=== PATIENT | female | born 1990 | race Caucasian/White ===

== ENCOUNTER 2018-01-28 18:14 | Observation (INO) ==
[2018-01-28] MEDS ORDERED: Ringers Solution, Lactated 1,000 ML ONE (19:01)
[2018-01-28 19:07] LABS: Bilirubin,Urine Negative (Negative); Blood,Urine Negative (Negative); Clarity,Urine Cloudy (Clear); Color,Urine Yellow (Yellow); Glucose,Urine (UA) Normal (Normal); Ketones,Urine 80 mg/dL (Negative); Leukocyte Esterase,Urine Moderate (Negative); Nitrite,Urine Negative (Negative); PH,Urine 6.5 pH Units (5.0-8.0); Protein,Urine Trace mg/dL (Neg-Trace); Urobilinogen,Urine Normal (Normal)
[2018-01-28 19:09] LABS: Bacteria,Urine Moderate per hpf (None-Few); Squamous Epithelial Cell,Urine Many per lpf (None-Few); WBC,Urine 50-100 per hpf (0-3)
[2018-01-28 19:11] LABS: Amphetamine Screen,Urine Negative ng/mL (Cutoff=1000); Barbiturate Screen,Urine Negative ng/mL (Cutoff=200); Benzodiazepines Screen,Urine Negative ng/mL (Cutoff=200); Cannabinoid Screen,Urine Negative ng/mL (Cutoff = 50); Cocaine Screen,Urine Negative ng/mL (Cutoff= 300); Opiate Screen,Urine Negative ng/mL (Cutoff=300); Phencyclidine Screen,Urine Negative ng/mL (Cutoff=25)
--- NOTE | 2018-01-28 19:15 | OB/GYN History & Physical ---
Date of Encounter: 01/28/18 Time of Encounter: 19:12 Assessment and Plan (1) 25 weeks gestation of Current visit: Yes Status: Acute (2) CVA tenderness Current visit: Yes Status: Acute (3) Urinary urgency Current visit: Yes Status: Acute (4) Pyelonephritis affecting in second trimester Current visit: Yes Status: Acute Admit to inpatient Administer rocephin 1g every 24 hours IV NST daily Pain medicine PRN Regular diet Possible discharge tomorrow History of Present Illness Chief complaint: flank pain HPI: Ms. Cerda is a 27 year old who presents with complaints of bilateral flank pain, suprapubic tenderness, nausea, urinary frequency, urinary urgency, and dysuria since this afternoon. Endorses good FM, and denies LOF, vaginal bleeding, ctx. Past Med Surg Social Fam HX - Past Medical History Medical history: no medical history - Social History Smoking Status: Never smoker Smokeless Tobacco Status: No Alcohol use: none Drug use: none - Family History Mother Living Status: Still Living Hx Family Cardiac Disorders: No Hx Family Respiratory Disorders: No Hx Family Cancer: No Hx Family GI Disorders: No Hx Family Genitourinary Disorders: No Hx Family Endocrine Disorder: No Hx Family Musculoskeletal Disorders: No Hx Family Neuromuscular Disorders: No Hx Family Neurologic Disorders: No Hx Family HEENT Disorders: No Hx Family Autoimmune Disorders: No Hx Family Reproductive Disorders: No Hx Family Psychosocial Disorders: No Hx Family Medical Disorders: No Obstetrical History - Pregnancies : 2 Para: 1 Term: 1 : 0 Ab's: 0 Livin Medications and Allergies Vit/Iron Fumarate/FA [ Tablet] 1 tab PO DAILY 01/28/18 [History ] 3 Allergy/AdvReac Type Severity Reaction Status Date / Time No Known Allergies Allergy Verified 01/28/18 18:31 Review of System OB - Genitourinary Genitourinary: change in urinary stream, difficulty urinating, difficulty voiding, post void dribbling, urinary frequency, urinary urgency Exam - Constitutional Constitutional: well developed, well nourished, average body habitus, moderate distress - HEENT HEENT: Normocephaly, Mucus Membranes Moist - Neck Neck exam: full ROM - Lungs Respiratory exam: CTAB - Cardiovascular Cardiovascular exam: RRR, +S1, +S2 - Breasts Breast: bilateral: normal - Abdomen Abdomen: Present: bowel sounds normal, gravid - Extremities Extremities exam: radial pulses palpable and symmetrical - Uterus Uterus exam: Present: normal size, normal contour - Comments Comments: Bilateral CVA tenderness Suprapubic tenderness Results Result Diagrams: 01/28/18 19:14 01/28/18 19:14 All other labs normal. - VTE Reasons for not Prescribing Prophylaxis: Treatment not Indicated - Low risk for VTE
[2018-01-28] MEDS ORDERED: Ringers Solution, Lactated 500 ML IVC ONE (19:21)
[2018-01-28] MEDS ORDERED: Ringers Solution, Lactated 1,000 ML IVC SCH (19:30)
[2018-01-28 19:33] LABS: Hyaline Casts,Urine Few per lpf (None-Few)
[2018-01-28] MEDS ORDERED: Ondansetron 4 MG/2 ML VIAL IVP ONE (19:35)
[2018-01-28 19:47] LABS: Basophils % 0.2 %; Hematocrit 36.6 % (35.3-44.9); Hemoglobin 12.6 g/dL (11.5-15.4); Immature Granulocytes % 0.6 % (0-4); Lymphocytes # 1.3 K/mcL (0.6-4.6); Lymphocytes % 6.4 %; Mean Corpuscular HGB Conc 34.4 g/dL (31.6-35.5); Mean Corpuscular Hemoglobin 30.9 pg (28.0-33.3); Mean Corpuscular Volume 89.7 fL (83.0-100.0); Monocytes # 0.8 K/mcL (0.0-1.3); Monocytes % 3.9 %; Neutrophils # 17.5 K/mcL (1.6-8.9); Platelet Count 204 K/mcL (140-400); Red Blood Count 4.08 M/mcL (3.82-4.97); Red Cell Distribution Width 12.8 % (11.5-14.5); Segmented Neutrophils % 88.9 %
[2018-01-28 19:53] LABS: Alanine Aminotransferase 9 Units/L (7-52); Albumin 3.6 g/dL (3.5-5.7); Albumin/Globulin Ratio 1.2 (1.1-2.2); Alkaline Phosphatase 71 Units/L (34-104); Aspartate Amino Transferase 12 Units/L (13-39); BUN/Creatinine Ratio 9 (6-26); Bilirubin,Total 0.5 mg/dL (0.3-1.0); Blood Urea Nitrogen 5 mg/dL (6-20); Carbon Dioxide 20 mEq/L (23-29); Chloride 102 mEq/L (98-107); Glucose 101 mg/dL (70-105); Osmolality,Calculated 271 (280-300); Potassium 3.5 mEq/L (3.5-5.1); Sodium 132 mEq/L (136-145); Total Protein 6.6 g/dL (6.4-8.9); eGFR For African Americans > 60 (> 60); eGFR For Non-African Americans > 60 (> 60)
[2018-01-28] MEDS ORDERED: cefTRIAXone 2,000 MG in Water for inj. (sterile) 20 ML 20 ML IVP ONE ×2 (19:54→21:00)
[2018-01-28] MEDS ORDERED: Acetaminophen 325 MG TABLET PO PRN ×2 (19:58→20:42)
[2018-01-28] MEDS ORDERED: Ondansetron 4 MG/2 ML VIAL IVP PRN ×2 (19:58→20:42)
[2018-01-28] MEDS ORDERED: *HR* OxyCODONE/APAP 5/325 TABLET PO PRN (19:58)
[2018-01-28] MEDS ORDERED: *HR* Promethazine 25 MG/ML VIAL IVP PRN ×2 (19:58→20:42)
[2018-01-28] MEDS ORDERED: cefTRIAXone 1,000 MG in Water for inj. (sterile) 20 ML 10 ML IVP SCH (20:00)
[2018-01-28] MEDS: Ringers Solution, Lactated 1,000 ML IVC SCH (20:54)
[2018-01-28] MEDS: *HR* OxyCODONE/APAP 5/325 TABLET PO PRN (20:55)
[2018-01-29] MEDS: *HR* OxyCODONE/APAP 5/325 TABLET PO PRN (03:36)
[2018-01-29] MEDS: Ringers Solution, Lactated 1,000 ML IVC SCH (03:37)
[2018-01-29] MEDS ORDERED: cefTRIAXone 1,000 MG in Water for inj. (sterile) 20 ML 10 ML IVP SCH (09:00)
[2018-01-29 09:32] VITALS: BP 101/63
[2018-01-29 09:42] LABS: Basophils % 0.2 %; Eosinophils % 0.1 %; Immature Granulocytes % 0.5 % (0-4); Lymphocytes # 1.3 K/mcL (0.6-4.6); Lymphocytes % 12.4 %; Mean Corpuscular HGB Conc 34.1 g/dL (31.6-35.5); Mean Corpuscular Hemoglobin 31.3 pg (28.0-33.3); Mean Platelet Volume 10.8 fL (9.4-12.4); Monocytes # 0.4 K/mcL (0.0-1.3); Monocytes % 3.9 %; Neutrophils # 8.6 K/mcL (1.6-8.9); Platelet Count 168 K/mcL (140-400); Red Blood Count 3.48 M/mcL (3.82-4.97); Red Cell Distribution Width 13.2 % (11.5-14.5); Segmented Neutrophils % 82.9 %
[2018-01-29 09:45] LABS: Hemoglobin 10.9 g/dL (11.5-15.4)
[2018-01-29] MEDS ORDERED: Metoclopramide 10 MG/2 ML VIAL IVP ONE (10:13)
[2018-01-29] MEDS ORDERED: cephALEXin 500 MG CAPSULE PO SCH (13:00)
--- NOTE | 2018-01-29 13:04 | Discharge Summary ---
Date of Encounter: 01/29/18 Time of Encounter: 13:04 - Discharge Diagnosis (1) 25 weeks gestation of Priority: Primary Status: Acute Comments: Keep currently scheduled follow-up (2) Pyelonephritis affecting in second trimester Priority: Primary Status: Acute Comments: Well change to oral Keflex, and discharge home. Discussed with Dr. Briones - Discharge Medications Prescriptions: cephALEXin [Keflex] 500 mg PO QID #28 capsule Home Medications: Vit/Iron Fumarate/FA [ Tablet] 1 tab PO DAILY 01/28/18 [History ] Acetaminophen [Tylenol] 650 mg PO Q6HR PRN tablet 01/29/18 [Rx] cephALEXin [Keflex] 500 mg PO QID #28 capsule 01/29/18 [Rx] Allergies/Adverse Reactions: 3 Allergy/AdvReac Type Severity Reaction Status Date / Time No Known Allergies Allergy Verified 01/28/18 18:31 Data Procedures and tests throughout hospitalization: Laboratory Tests 01/28/18 01/28/18 01/28/18 18:45 18:45 19:14 WBC 19.7 H RBC 4.08 Hgb 12.6 Hct 36.6 MCV 89.7 MCH 30.9 MCHC 34.4 RDW 12.8 Plt Count 204 MPV 11.0 Immature Gran % 0.6 Seg Neutrophils % 88.9 Lymphocytes % 6.4 Monocytes % 3.9 Eosinophils % 0.0 Basophils % 0.2 Neutrophils # 17.5 H Lymphocytes # 1.3 Monocytes # 0.8 Eosinophils # 0.0 Basophils # 0.0 Sodium Potassium Chloride Carbon Dioxide BUN Creatinine Est GFR ( Amer) Est GFR (Non-Af Amer) BUN/Creatinine Ratio Glucose Calculated Osmolality Calcium Total Bilirubin AST ALT Alkaline Phosphatase Serum Total Protein Albumin Globulin Albumin/Globulin Ratio Urine Color Yellow Urine Clarity Cloudy A Urine pH 6.5 Ur Specific Secretary 1.020 Urine Protein Trace Urine Glucose (UA) Normal Urine Ketones 80 H Urine Blood Negative Urine Nitrite Negative Urine Bilirubin Negative Urine Urobilinogen Normal Ur Leukocyte Esterase Moderate H Urine Microscopic RBC 5-15 H Urine Microscopic WBC 50-100 H Ur Squamous Epith Cells Many H Urine Bacteria Moderate H Hyaline Casts Few Ur Culture Indicated? NO. Urine Opiates Screen Negative Ur Barbiturates Screen Negative Ur Phencyclidine Scrn Negative Ur Amphetamines Screen Negative U Benzodiazepines Scrn Negative Urine Cocaine Screen Negative U Marijuana (THC) Screen Negative 01/28/18 01/29/18 19:14 09:06 WBC 10.4 RBC 3.48 L Hgb 10.9 L D Hct 32.0 L MCV 92.0 MCH 31.3 MCHC 34.1 RDW 13.2 Plt Count 168 MPV 10.8 Immature Gran % 0.5 Seg Neutrophils % 82.9 Lymphocytes % 12.4 Monocytes % 3.9 Eosinophils % 0.1 Basophils % 0.2 Neutrophils # 8.6 Lymphocytes # 1.3 Monocytes # 0.4 Eosinophils # 0.0 Basophils # 0.0 Sodium 132 L Potassium 3.5 Chloride 102 Carbon Dioxide 20 L BUN 5 L Creatinine 0.58 L Est GFR ( Amer) > 60 Est GFR (Non-Af Amer) > 60 BUN/Creatinine Ratio 9 Glucose 101 Calculated Osmolality 271 L Calcium 9.0 Total Bilirubin 0.5 AST 12 L ALT 9 Alkaline Phosphatase 71 Serum Total Protein 6.6 Albumin 3.6 Globulin 3.0 Albumin/Globulin Ratio 1.2 Urine Color Urine Clarity Urine pH Ur Specific Secretary Urine Protein Urine Glucose (UA) Urine Ketones Urine Blood Urine Nitrite Urine Bilirubin Urine Urobilinogen Ur Leukocyte Esterase Urine Microscopic RBC Urine Microscopic WBC Ur Squamous Epith Cells Urine Bacteria Hyaline Casts Ur Culture Indicated? Urine Opiates Screen Ur Barbiturates Screen Ur Phencyclidine Scrn Ur Amphetamines Screen U Benzodiazepines Scrn Urine Cocaine Screen U Marijuana (THC) Screen Labs on day of discharge: Labs from last 24 hours 01/29/18 01/28/18 01/28/18 09:06 19:14 19:14 WBC 10.4 19.7 H RBC 3.48 L 4.08 Hgb 10.9 L D 12.6 Hct 32.0 L 36.6 MCV 92.0 89.7 MCH 31.3 30.9 MCHC 34.1 34.4 RDW 13.2 12.8 Plt Count 168 204 MPV 10.8 11.0 Immature Gran % 0.5 0.6 Seg Neutrophils % 82.9 88.9 Lymphocytes % 12.4 6.4 Monocytes % 3.9 3.9 Eosinophils % 0.1 0.0 Basophils % 0.2 0.2 Neutrophils # 8.6 17.5 H Lymphocytes # 1.3 1.3 Monocytes # 0.4 0.8 Eosinophils # 0.0 0.0 Basophils # 0.0 0.0 Sodium 132 L Potassium 3.5 Chloride 102 Carbon Dioxide 20 L BUN 5 L Creatinine 0.58 L Est GFR ( Amer) > 60 Est GFR (Non-Af Amer) > 60 BUN/Creatinine Ratio 9 Glucose 101 Calculated Osmolality 271 L Calcium 9.0 Total Bilirubin 0.5 AST 12 L ALT 9 Alkaline Phosphatase 71 Serum Total Protein 6.6 Albumin 3.6 Globulin 3.0 Albumin/Globulin Ratio 1.2 Urine Color Urine Clarity Urine pH Ur Specific Secretary Urine Protein Urine Glucose (UA) Urine Ketones Urine Blood Urine Nitrite Urine Bilirubin Urine Urobilinogen Ur Leukocyte Esterase Urine Microscopic RBC Urine Microscopic WBC Ur Squamous Epith Cells Urine Bacteria Hyaline Casts Ur Culture Indicated? Urine Opiates Screen Ur Barbiturates Screen Ur Phencyclidine Scrn Ur Amphetamines Screen U Benzodiazepines Scrn Urine Cocaine Screen U Marijuana (THC) Screen 01/28/18 01/28/18 18:45 18:45 WBC RBC Hgb Hct MCV MCH MCHC RDW Plt Count MPV Immature Gran % Seg Neutrophils % Lymphocytes % Monocytes % Eosinophils % Basophils % Neutrophils # Lymphocytes # Monocytes # Eosinophils # Basophils # Sodium Potassium Chloride Carbon Dioxide BUN Creatinine Est GFR ( Amer) Est GFR (Non-Af Amer) BUN/Creatinine Ratio Glucose Calculated Osmolality Calcium Total Bilirubin AST ALT Alkaline Phosphatase Serum Total Protein Albumin Globulin Albumin/Globulin Ratio Urine Color Yellow Urine Clarity Cloudy A Urine pH 6.5 Ur Specific Secretary 1.020 Urine Protein Trace Urine Glucose (UA) Normal Urine Ketones 80 H Urine Blood Negative Urine Nitrite Negative Urine Bilirubin Negative Urine Urobilinogen Normal Ur Leukocyte Esterase Moderate H Urine Microscopic RBC 5-15 H Urine Microscopic WBC 50-100 H Ur Squamous Epith Cells Many H Urine Bacteria Moderate H Hyaline Casts Few Ur Culture Indicated? NO. Urine Opiates Screen Negative Ur Barbiturates Screen Negative Ur Phencyclidine Scrn Negative Ur Amphetamines Screen Negative U Benzodiazepines Scrn Negative Urine Cocaine Screen Negative U Marijuana (THC) Screen Negative Date of admission: 01/28/18 18:14 Primary care physician: Yeison Fiore Jr, MD Discharging clinician: Shameka Ritchie Anticipated date of discharge: 01/29/18 - Patient Status Disposition: Home, Self-Care Condition: Good Functional capacity at discharge: independent ambulation Overall status at discharge: patient is back to baseline - Discharge Instructions Instructions: Urinary Tract Infection in Women (DC) Follow Up With: Yeison Fiore Jr, MD [Primary Care Provider] - - Diet and Activity Activity: resume usual activities as tolerated Diet: regular diet 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 has remained afebrile, CBC today shows decreasing WBCs, patient states pain is well improved and manageable on oral pain medication. Will discharge home in stable condition, patient given labor and when to return for evaluation precautions Time Attestation: Total time spent providing and/or coordinating discharge services: Time Spent: Less than 30 minutes Exam - Constitutional Vitals: Temp Pulse Resp BP Pulse Ox 98.4 F 95 16 101/63 97 01/29/18 09:05 01/29/18 09:05 01/29/18 09:05 01/29/18 09:05 01/29/18 09:05 General appearance IM: A&O X 3 - Respiratory Respiratory exam: Present: CTAB - Cardiovascular Cardiovascular exam IM: Present: RRR - GI/Abdominal GI/Abdominal exam IM: normal bowel sounds, soft - Additional comments: Uterus soft and nontender, movement palpated - Neurological Exam Neurological exam: normal gait, oriented X3 - Other Additional findings: Mild CVA tenderness bilaterally but more on left than right - VTE Reasons for not Prescribing Prophylaxis: Treatment not Indicated - Low risk for VTE
== END 2018-01-29 14:43 | disposition home or self-care (01) ==
LOC: 1NENULAB → 1NENUOBS 20:41
PROVIDERS: ADMIT Advanced Practice Midwife; ATTEND Obstetrics & Gynecology

== ENCOUNTER 2018-05-06 05:51 | Inpatient (IN) ==
[2018-05-06] MEDS ORDERED: Naloxone 0.4 MG/ML INJ IVP PRN ×2 (05:56→12:40)
[2018-05-06] MEDS ORDERED: ceFAZolin 2,000 MG in Water for inj. (sterile) 20 ML 10 ML IVP ONE (05:56)
[2018-05-06] MEDS ORDERED: Famotidine 20 MG/2 ML VIAL IVP PRN (05:56)
[2018-05-06] MEDS ORDERED: Metoclopramide 10 MG/2 ML VIAL IVP PRN ×2 (05:56→12:40)
[2018-05-06] MEDS ORDERED: Ringers Solution, Lactated 1,000 ML IVC ONE (05:58)
[2018-05-06] MEDS ORDERED: Ringers Solution, Lactated 1,000 ML IVC SCH ×2 (06:00→12:40)
[2018-05-06] MEDS ORDERED: ceFAZolin 2,000 MG in 0.9 % Sodium Chloride 100 ML IVP ONE (06:15)
[2018-05-06 06:29] LABS: Basophils % 0.3 %; Eosinophils # 0.1 K/mcL (0.0-0.6); Eosinophils % 0.7 %; Hemoglobin 12.1 g/dL (11.5-15.4); Immature Granulocytes % 0.4 % (0-4); Immature Platelets 6.2 % (1.1-6.1); Lymphocytes # 3.2 K/mcL (0.6-4.6); Lymphocytes % 35.5 %; Mean Corpuscular HGB Conc 34.6 g/dL (31.6-35.5); Mean Corpuscular Hemoglobin 31.2 pg (28.0-33.3); Mean Corpuscular Volume 90.2 fL (83.0-100.0); Mean Platelet Volume 11.2 fL (9.4-12.4); Monocytes # 0.5 K/mcL (0.0-1.3); Monocytes % 5.4 %; Neutrophils # 5.1 K/mcL (1.6-8.9); Platelet Count 174 K/mcL (140-400); Red Blood Count 3.88 M/mcL (3.82-4.97); Red Cell Distribution Width 13.2 % (11.5-14.5); Segmented Neutrophils % 57.7 %
[2018-05-06 06:39] LABS: Amphetamine Screen,Urine Negative ng/mL (Cutoff=1000); Barbiturate Screen,Urine Negative ng/mL (Cutoff=200); Benzodiazepines Screen,Urine Negative ng/mL (Cutoff=200); Cannabinoid Screen,Urine Negative ng/mL (Cutoff = 50); Cocaine Screen,Urine Negative ng/mL (Cutoff= 300); Opiate Screen,Urine Negative ng/mL (Cutoff=300); Phencyclidine Screen,Urine Negative ng/mL (Cutoff=25)
[2018-05-06] MEDS ORDERED: Oxytocin 20 units/ LR 1000 mL 20 UNIT/1,000 ML BAG IVC ONE ×3 (07:09→20:34)
--- NOTE | 2018-05-06 07:12 | OB/GYN History & Physical ---
Date of Encounter: 05/06/18 Time of Encounter: 07:10 Assessment and Plan (1) and not yet delivered in third trimester Current visit: Yes Status: Acute (2) 39 weeks gestation of Current visit: Yes Status: Acute (3) Previous section complicating Current visit: Yes Status: Acute Plan is to perform a repeat low transverse section (4) Positive GBS test Current visit: Yes Status: Acute History of Present Illness HPI: Ms. Cerda is a 27 year old female 2 para 1 at 39-5/7 weeks who presented for repeat low transverse section. Patient has a previous section was instructed that we do not offer VBACs. Patient's has had a relatively uncomplicated course she is not complaining of contractions good movement no vaginal bleeding or discharge. Patient is GBS positive we will treat appropriately. 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 Patient does of a history of bradycardia after last for approximately 3 days. Cause unknown. Patient is a positive, rubella negative, Varicella negative Past Med Surg Social Fam HX - Past Medical History Source: patient, old records reviewed Medical history: no medical history Psychiatric history: no psych history - Past Surgical History Surgical History: , cholecystectomy Additional surgical history: C section. Cholysectomy 2013 - Social History Smoking Status: Never smoker Smokeless Tobacco Status: No Alcohol use: none Drug use: none Occupational status: employed Current living situation: Home - Independent Recent Out of Country Travel Within the Last 8 Weeks: No Exposure or Possible Exposure to Illness During Travel: No - Family History Mother Age: 49 Living Status: Still Living Hx Family Cardiac Disorders: No Hx Family Respiratory Disorders: No Hx Family Cancer: No Hx Family GI Disorders: No Hx Family Genitourinary Disorders: No Hx Family Endocrine Disorder: No Hx Family Musculoskeletal Disorders: No Hx Family Neuromuscular Disorders: No Hx Family Neurologic Disorders: No Hx Family HEENT Disorders: No Hx Family Autoimmune Disorders: No Hx Family Reproductive Disorders: No Hx Family Psychosocial Disorders: No Hx Family Medical Disorders: No - Additional Family History Additional family history: Family history noncontributory Obstetrical History - Pregnancies : 2 Para: 1 Livin Medications and Allergies Vit/Iron Fumarate/FA [ Tablet] 1 tab PO DAILY 01/28/18 [History ] 3 Allergy/AdvReac Type Severity Reaction Status Date / Time No Known Allergies Allergy Verified 05/06/18 05:56 Review of System OB All systems PM: reviewed and no additional remarkable complaints except as stated Exam - Vital Signs Vital signs: Initial Vital Signs Temp Pulse Resp BP 98.6 F 95 16 127/94 05/06/18 06:03 05/06/18 06:03 05/06/18 06:03 05/06/18 06:03 - Constitutional Constitutional: well developed, well nourished, no acute distress, average body habitus - HEENT HEENT: EOMI, PERRL - Neck Neck exam: full ROM - Lungs Respiratory exam: CTAB - Cardiovascular Cardiovascular exam: RRR - Abdomen Abdomen: Present: bowel sounds normal, gravid - Cervix Dilation: 0 Effacement: 50 Station: -4 ( heart of 140s reactive no contraction seen) Results Result Diagrams: 05/06/18 06:18 Abnormal lab results Hct 35.0 % (35.3-44.9) L 05/06/18 06:18 Immature Plt Fraction 6.2 % (1.1-6.1) H 05/06/18 06:18 All other labs normal.
--- NOTE | 2018-05-06 07:25 | Anesthesia Evaluation PreOp ---
Date of Encounter: 05/06/18 Time of Encounter: 07:23 - Past History Planned Operation: Repeat C/S Cardiac History: Denies any Significant Hx Pulmonary History: Denies Any Significant HX MACHINE FIXER History: Denies Any Significant HX Other Medical History: Denies Any Significant HX Anesthesia History: No Prior Anesthetic Complications (denies personal h/o GA or NA complications; denies family h/o GA complications) : Yes Test: Positive Alcohol Use: none Drug use: none Medications and Allergies Vit/Iron Fumarate/FA [ Tablet] 1 tab PO DAILY 01/28/18 [History ] 3 Allergy/AdvReac Type Severity Reaction Status Date / Time No Known Allergies Allergy Verified 05/06/18 05:56 - Meds/Allergy Pre-op Review Medications Reviewed: Yes Allergies Reviewed: Yes Beta Blockers on Current Med List: No Anesthesia Results - Labs 05/06/18 06:18 Anesthesia Exam O2 Sat Height 1.7 m Height 1.7 m Weight 90.9 kg Weight 90.9 kg Vital Signs Temp Pulse Resp BP 98.6 F 95 16 127/94 05/06/18 06:03 05/06/18 06:03 05/06/18 06:03 05/06/18 06:03 NPO (# of Hours): >8hrs Pain Scale: 0 Pain Scale Used: Numeric (1 - 10) - HEENT Pupil (Motor): Pupils equal Mallampati: I Teeth: Normal Oral Opening: Greater than 3 - MACHINE FIXER LOC: Oriented MACHINE FIXER Motor: Normal RUE, Normal LUE, Normal RLE, Normal LLE, Normal Face MACHINE FIXER Sensory: Normal: RUE, LUE, RLE, LLE, Face - Cardiac Rhythm: Regular Murmur: None - Pulmonary Breath Sounds: bilateral Clear Respiratory Effort: Symmetrical Anesthesia Assess/Plan ASA Score: 2 Modified Gilberto Scale for Level of Consciousness: Cooperative, oriented, and tranquil Anesthetic Plan: Regional Autologous Blood: No Monitoring Plan: Standard Monitors Recovery Plan: PACU
[2018-05-06] MEDS ORDERED: Bupivacaine/PF 0.75% in Dex 2 ML AMPUL INFILT ONE (07:27)
[2018-05-06] MEDS ORDERED: Morphine Sulfate/PF 5mg/10mL Vial ONE (07:28)
[2018-05-06] MEDS ORDERED: *HR* FentaNYL (PF) 100 MCG/2 ML VIAL ONE (07:28)
[2018-05-06] MEDS ORDERED: *HR* Phenylephrine 10 MG/ML VIAL ONE (07:37)
[2018-05-06] MEDS ORDERED: *HR* Promethazine 25 MG/ML VIAL IVP PRN (08:18)
[2018-05-06] MEDS ORDERED: Ondansetron 4 MG/2 ML VIAL IVP PRN ×2 (08:18→12:40)
--- NOTE | 2018-05-06 08:18 | Anesthesia Procedures ---
Date of Encounter: 05/06/18 Time of Encounter: 07:58 Procedures: Anesthesia - Epidural/Spinal Patient ID/Chart reviewed: Yes Patient examined: Yes OB Eval: Gestational age: 39 weeks 5 days OB Eval: : 2 OB Eval: Hx Para: 1 OB Eval: Contractions: Non-stressed pattern Consent Obtained: Yes Supplemental Oxygen: None/Room Air Site Prep: Aseptic Technique, Sterile prep and drape, Povidone-Iodine 1% Patient position: upright Local Anesthetic: Lidocaine 1% Amount of Local Anesthetic used: 3 Blood: No CSF: Yes Paresthesia: No Spinal Needle Gauge: 24 (3.5inch pencil point tip) Spinal Dose: see anesthesia record Procedure: successful on 1st attempt; patient tolerated well Vitals + FHT's: see anesthesia record
[2018-05-06] MEDS ORDERED: Ondansetron 4 MG/2 ML VIAL ONE (08:45)
--- NOTE | 2018-05-06 09:05 | OB/GYN Procedure Note ---
Section - Date of procedure: 05/06/18 Preop diagnosis: desires repeat Post-op diagnosis: same Procedure: repeat low transverse Surgeon: Moise Thompson Blood Loss: 500 Was there an executive personal assistant present: No Anesthesiologist: Balta Medeiros Manager [employer]: Oneil Hernandez Anesthesia Type: Spinal section complications: none Disposition: L&D Recovery Room - Infant (s) Infant A Infant Delivery Date: 05/06/18 Delivery Time: 08:22 Presentation: vertex Position: FELICITAS Route of delivery: other (section) Gender: Female Viability: Viable Pounds: 8 Ounces: 1 at 1 minute: 9 at 5 minutes: 9 Shoulder Dystocia: not encountered Placenta: spontaneous Cord: nuchal cord, 3 umbilical vessels, nuchal reduced - Narrative Narrative: Patient is a 27-year-old 2 para 1 at 39-5/7 weeks who presented for repeat section. Patient had a previous section and we advised we did not offer VBACs. Hospital course was unremarkable. Procedure: Patient was taken to the operating room with spinal anesthesia was found be adequate. She was placed in the dorsal supine position with leftward tilt and prepped and draped in usual fashion. Timeout was then obtained. A Pfannenstiel incision was then made with a scalpel removing her old scar. The incision was then carried down through the underlying tissue to the fascia was identified. The fascia was nicked in midline extended laterally with the Hampton scissors. The superior and inferior edges of the fascia grasped tented up dissected off the rectus muscles. Rectus muscles were in the midline parietal peritoneum was identified tented up and entered sharply. This is extended superiorly and inferiorly with Metzenbaum scissors. The bladder blade was inserted the vesicouterine peritoneum was identified tented up and entered sharply. This was extended laterally the bladder flap created digitally. The lower uterine segment was incised with the scalpel extended laterally with digital manipulation. Membranes were ruptured and clear fluid noted. The infant's head was then delivered there was a nuchal cord 1 loose and reduced we then fully delivered the the cord was clamped and cut and was handed off to waiting pediatric team. We did not need cord blood placenta was delivered spontaneously with a three-vessel cord. Uterus was exteriorized cleaned of all clots and debris and the lower uterine segment was closed using an 0 Vicryl in a running locking stitch by a 2 layer closure. Good hemostasis was noted. Ovaries tubes both normal. Uterus was returned to the abdomen the gutters were cleaned of all clots and debris then copiously irrigated with no active bleeding. The fascia was then closed using a #1 stratafix in a running stitch and the skin was closed using a 4-0 Vicryl in a subcuticular manner. All needles laps and sponge counts were correct 3 she did receive preoperative antibiotics. A PRINEO Dermabond dressing was applied at the end of the case. Patient was taken to the recovery room in stable condition.
--- NOTE | 2018-05-06 09:16 | Anesthesia Evaluation Post Op ---
Date of Encounter: 05/06/18 Time of Encounter: 09:14 - Vital Signs Vital Signs: 110/77, HR 84, SpO2 97%, RR 16 - Lungs Lungs: Clear Ascult./Percussion - Airway Airway: Non-obstructed - Cardiovascular Regular Rate - Mental Status Mental Status: Alert & Oriented, Answers Appropriately - Pain Pain Scale: 0 Pain Scale used: Numeric (1 - 10) - Nausea Vomiting Nausea Vomiting: Not Present - Hydration Hydration: NPO, Herring catheter - Discharge PostOp Status: Transfer Patient to floor
[2018-05-06] MEDS ORDERED: Simethicone 80 MG TAB.CHEW PO PRN (12:40)
[2018-05-06] MEDS ORDERED: Sennosides 8.6 MG TABLET PO PRN (12:40)
[2018-05-06] MEDS ORDERED: *HR* OxyCODONE/APAP 5/325 TABLET PO PRN (12:40)
[2018-05-06] MEDS ORDERED: Oxytocin 20 units/ LR 1000 mL 20 UNIT/1,000 ML BAG IVC SCH ×2 (12:40)
[2018-05-06] MEDS ORDERED: *HR* OxyCODONE/APAP 10/325 TABLET PO PRN (12:40)
[2018-05-06] MEDS: Ibuprofen 600 MG TABLET PO PRN (17:46)
[2018-05-07] MEDS: Ibuprofen 600 MG TABLET PO PRN ×2 (03:34→12:50)
[2018-05-07 04:36] LABS: Basophils % 0.2 %; Eosinophils # 0.1 K/mcL (0.0-0.6); Hematocrit 31.8 % (35.3-44.9); Hemoglobin 10.8 g/dL (11.5-15.4); Immature Granulocytes % 0.6 % (0-4); Lymphocytes # 2.7 K/mcL (0.6-4.6); Lymphocytes % 22.7 %; Mean Corpuscular Hemoglobin 30.8 pg (28.0-33.3); Mean Corpuscular Volume 90.6 fL (83.0-100.0); Mean Platelet Volume 11.3 fL (9.4-12.4); Monocytes # 0.5 K/mcL (0.0-1.3); Monocytes % 4.1 %; Neutrophils # 8.5 K/mcL (1.6-8.9); Platelet Count 130 K/mcL (140-400); Red Blood Count 3.51 M/mcL (3.82-4.97); Red Cell Distribution Width 13.1 % (11.5-14.5); Segmented Neutrophils % 71.4 %
[2018-05-07] MEDS: Prenatal Vit/FA 1 EACH TABLET PO SCH (07:45)
[2018-05-07] MEDS ORDERED: NON-FORMULARY MEDICATION 1 EACH EACH (Prenatal Vit/Iron Fumarate/Fa [Prenatal Tablet] 1 TA PO SCH (09:00)
--- NOTE | 2018-05-07 09:36 | OB/GYN Progress Note ---
Date of Encounter: 05/07/18 Time of Encounter: 09:34 - Assessment and Plan (1) Status post repeat low transverse section Current Visit: Yes Status: Acute Continue routine care Abdominal binder as needed Anticipate discharge home tomorrow (2) Breast feeding status of mother Current Visit: Yes Status: Acute consult when necessary (3) anemia Current Visit: Yes Status: Acute Continue iron supplement daily Subjective - Subjective Principal diagnosis: s/p RLTCS Interval history: Feeling well. Out of bed without dizziness. Some abdominal discomfort-using binder appropriately. Tolerating regular diet. Reports breast-feeding is going well. Patient reports: appetite normal, voiding normally, pain well controlled, ambulating normally [place]: doing well, nursing well Objective - Vital Signs Latest vital signs: Vital Signs Temp Pulse Resp BP Pulse Ox 05/07/18 07:50 98.2 F 63 12 106/64 97 05/07/18 03:30 98.3 F 65 14 108/62 99 05/06/18 23:45 98.2 F 70 18 101/57 98 05/06/18 20:00 98.2 F 61 14 100/59 96 05/06/18 16:35 97.9 F 71 16 118/76 97 05/06/18 14:00 97.8 F 56 18 110/67 99 05/06/18 13:05 97.8 F 70 16 117/77 97 05/06/18 12:17 97.5 F L 61 14 120/71 98 05/06/18 11:30 97.5 F L 50 14 116/69 98 Intake and Output 05/06/18 05/07/18 05/07/18 23:59 07:59 15:59 Intake Total 450 / 450 500 / 500 Output Total 1400 / 1400 1900 / 1900 Balance -950 / -950 -1400 / -1400 Intake: Oral 450 / 450 500 / 500 Output: Urine 400 / 400 Catheter 1400 / 1400 1500 / 1500 Urethral (Herring) 1500 / 1500 Other: Weight 87.815 kg Patient Weight 05/07/18 23:59 Weight 87.815 kg - Exam Lungs: bilateral: normal Chest: Normal S1, Normal S2 Extremities: Present: normal, edema Abdomen: Present: normal appearance, soft Incision: Present: normal, dry, intact Uterus: Present: normal, firm Fundal Height: 1 (Below umbilicus) Comments: Breasts: Soft, nontender; nipples intact without erythema. - Labs Labs: Laboratory Results - last 24 hr 05/07/18 04:19 WBC 11.9 H RBC 3.51 L Hgb 10.8 L Hct 31.8 L MCV 90.6 MCH 30.8 MCHC 34.0 RDW 13.1 Plt Count 130 L MPV 11.3 Immature Gran % 0.6 Seg Neutrophils % 71.4 Lymphocytes % 22.7 Monocytes % 4.1 Eosinophils % 1.0 Basophils % 0.2 Neutrophils # 8.5 Lymphocytes # 2.7 Monocytes # 0.5 Eosinophils # 0.1 Basophils # 0.0
[2018-05-08 09:05] VITALS: BP 124/74
[2018-05-08] MEDS: Ibuprofen 600 MG TABLET PO PRN (09:49)
[2018-05-08] MEDS: Prenatal Vit/FA 1 EACH TABLET PO SCH (09:49)
--- NOTE | 2018-05-08 10:14 | Discharge Summary ---
Date of Encounter: 05/08/18 Time of Encounter: 10:09 - Discharge Diagnosis (1) Status post repeat low transverse section Priority: Primary Status: Acute Comments: Doing well. Ambulating and voiding without difficulty. Had bowel movement yesterday, passing gas. Tolerating regular diet. Dressing dry and intact. Lochia light and without clots. Infant in arms breast feeding with no problems. States pain well controlled with po meds. Desires to be discharged today. - Discharge Medications Prescriptions: Ibuprofen [Motrin] 600 mg PO Q6HR PRN #30 tablet PRN Reason: Cramping OxyCODONE/APAP 5/325 [Percocet 5/325 MG] 1 each PO Q6HR PRN 7 Days #28 tablet PRN Reason: Moderate pain 4-6 Docusate [Colace] 100 mg PO BID #20 capsule Ferrous Sulfate 325 mg PO DAILY #30 tablet Home Medications: Vit/Iron Fumarate/FA [ Tablet] 1 tab PO DAILY 01/28/18 [History ] Docusate [Colace] 100 mg PO BID #20 capsule 05/08/18 [Rx] Ferrous Sulfate 325 mg PO DAILY #30 tablet 05/08/18 [Rx] Ibuprofen [Motrin] 600 mg PO Q6HR PRN #30 tablet 05/08/18 [Rx] OxyCODONE/APAP 5/325 [Percocet 5/325 MG] 1 each PO Q6HR PRN 7 Days #28 tablet [Rx] Allergies/Adverse Reactions: 3 Allergy/AdvReac Type Severity Reaction Status Date / Time No Known Allergies Allergy Verified 05/06/18 05:56 Data Procedures and tests throughout hospitalization: Laboratory Tests 05/06/18 05/06/18 05/07/18 06:18 06:18 04:19 WBC 8.9 11.9 H RBC 3.88 3.51 L Hgb 12.1 10.8 L Hct 35.0 L 31.8 L MCV 90.2 90.6 MCH 31.2 30.8 MCHC 34.6 34.0 RDW 13.2 13.1 Plt Count 174 130 L MPV 11.2 11.3 Immature Gran % 0.4 0.6 Seg Neutrophils % 57.7 71.4 Lymphocytes % 35.5 22.7 Monocytes % 5.4 4.1 Eosinophils % 0.7 1.0 Basophils % 0.3 0.2 Neutrophils # 5.1 8.5 Lymphocytes # 3.2 2.7 Monocytes # 0.5 0.5 Eosinophils # 0.1 0.1 Basophils # 0.0 0.0 Immature Plt Fraction 6.2 H Urine Opiates Screen Negative Ur Barbiturates Screen Negative Ur Phencyclidine Scrn Negative Ur Amphetamines Screen Negative U Benzodiazepines Scrn Negative Urine Cocaine Screen Negative U Marijuana (THC) Screen Negative Date of admission: 05/06/18 05:51 Primary care physician: Yeison Fiore Jr, MD Discharging clinician: Nicky Bond Anticipated date of discharge: 05/08/18 - Patient Status Disposition: Home, Self-Care Condition: Good Functional capacity at discharge: independent ambulation Overall status at discharge: patient is progressing back to baseline - Discharge Instructions Follow Up With: Yeison Fiore Jr, MD [Primary Care Provider] - Moise Gresham DO [Partnered Physician] - - Diet and Activity Activity: resume usual activities as tolerated Diet: advance to your usual diet Hospital Course Reason for admission: section, IUP at term Delivery: section Episiotomy: none Laceration: none Other procedures: none complications: none Discharge diagnosis: IUP at term delivered baby: female Time spent discussing smoking cessation with patient: 3 to 10 minutes Time Attestation: Total time spent providing and/or coordinating discharge services: Time Spent: Less than 30 minutes - VTE Documentation of Mechanical Device: Intermittent pneumatic compression device Exam - Constitutional Vitals: Temp Pulse Resp BP Pulse Ox 98.3 F 65 16 124/74 98 05/08/18 09:02 05/08/18 09:02 05/08/18 09:02 05/08/18 09:02 05/08/18 09:02 General appearance IM: cooperative, A&O X 3, pleasant, no acute distress, answers questions appropriately - Respiratory Respiratory exam: Present: CTAB - Cardiovascular Cardiovascular exam IM: Present: RRR - GI/Abdominal GI/Abdominal exam IM: normal bowel sounds Incision: dressed - Rectal Rectal exam: deferred - Uterus Position: 1 Finger Below Umbilicus, Midline - Extremities Exam Extremities exam IM: Present: full ROM, normal inspection, radial pulses palpable and symmetrical - Neurological Exam Neurological exam: alert, normal gait, oriented X3, reflexes normal
== END 2018-05-08 13:00 | disposition home or self-care (01) | DRG 766 ==
LOC: 1NENULAB 05:51 → 1NENUOBS 10:03
PROVIDERS: ADMIT Obstetrics & Gynecology; ATTEND Obstetrics & Gynecology